=== PATIENT | male | born 1975 | race Caucasian/White ===

== ENCOUNTER 2017-09-26 01:40 | Emergency (ER) | payer SELFPAY ==
[2017-09-26 01:56] VITALS: BP 122/83; BMI 24.3
--- NOTE | 2017-09-26 02:11 | DR.GENAD ---
HPI - PCP Primary Care Physician: CLAUDIA - HPI Comment HPI Comment: HISTORY BELOW. - Complaint/Symptoms Chief Complaint Doctors Comments: PATIENT A PUSTULE BELOW RT KNEE WITH REDNESS EXTENDING TO LEG AND STREAKING TO LOWER THIGH AREA WITHIN 2 DAYS. INCREASING PAIN. NO FEVER. POP PUSTULE BUT CURRENTLY, NO DRAINAGE. Chief Complaint:: RIGHT LEG INNER THIGH HURTING AND "KNOTTED UP" FOR TWO DAYS. Self Treatment fo Chief Complaint: MOTRIN - Nurses notes reviewed Nurses Notes Review: Yes - Source History Provided: Patient - Mode of Arrival Mode of Arrival: Wheelchair - Timing Onset of Chief Complaint: 09/24/17 Came on: Suddenly - Duration Duration: Constant Duration: Days - Severity Severity: Moderate PMH - PMH Past Medical History: Yes Past Medical History: Depression, Seizures Past Surgical History: Yes Past Surgical History Comment: EAR DRUM - Family History History of Family Medical Conditions: Yes Family Medical History: [place] - Social History Does patient currently use any type of tobacco product: Yes Have you used tobacco products in the last 12 months: Yes Type of Tobacco Use: Cigarettes Does any household member use tobacco: No Alcohol Use: None Do you use any recreational Drugs:: No Lives With: Spouse Lives Where: Home - infectious screening In the last 2 months have you had wt loss of >10#?: NO Have you had fever, night sweats or hemotysis?: No Have you traveled outside the country in the last 6 months?: No Isolation: Standard ROS - Review of Systems Constitutional: No Symptoms Reported Eyes: No Symptoms Reported ENTM: No Symptoms Reported Respiratoy: No Symptoms Reported Cardiovascular: No Symptoms Reported Gastrointestinal/Abdominal: No Symptoms Reported Genitourinary: No Symptoms Reported Neurological: No Symptoms Reported Musculoskeletal: Right, Leg, Knee Integumentary: No Symptoms Reported Hematologic/Lymphatic: No Symptoms Reported Endocrine: No Symptoms Reported All Other Systems: Reviewed and Negative PE - Vital Signs Vitals: Temperature 99.3 F Pulse Rate 84 Respiratory Rate 20 Blood Pressure 122/83 O2 Sat by Pulse Oximetry 97 - General Limitations: No Limitations General Appearance: Alert - Head Head Exam: Normal Inspection - Eyes Eye exam: Normal Appearance - ENT ENT Exam: Normal External Ear Exam External Ear Exam: Normal External Inspection TM/Canal Exam: Bilateral Normal Nose Exam: Normal Nose Exam Mouth Exam: Normal Inspection Throat Exam: Normal Inspection - Neck Neck Exam: Trachea Midline - Chest Chest Inspection: Symmetric Chest Wall Rise - Respiratory Respiratory Exam: Normal Lung Sounds Bilat Respiratory Exam: Bilateral Clear to Auscultation - Cardiovascular Cardiovascular Exam: Regular Rate, Normal Rhythm, Normal Heart Sounds - Abdominal Exam Abdominal Exam: Normal Bowel Sounds, Soft. negative: Tenderness - Extremities Extremities Exam: Tenderness (REDNESS WITH STRAKING RLE. REDNESS RT LEG BELOW KNEE WITH STRAKING TO LOWER THIGH AREA. NO PALPABLE CORDS.) - Back Back Exam: Normal Inspection - Neurologic Neurological Exam: Alert, Oriented X3 - Psychiatric Psychiatric Exam: Normal Affect, Normal Mood - Skin Skin Exam: Rash, Erythema MDM - Additional Information Additional Information Obtained From: Family - Differential Diagnosis Differential Diagnosis: CELLULITIS RLE. Course - Treatment Treatment: SEE ORDERS. IV CLINDAMYCIN IN ED WITH IV TORADOL. - Education/Counseling Education/Counseling: Patient, Family, Education Educated On: Diagnosis, Needs for Follow Up ROR - Labs Reviewed Laboratory Results Reviewed?: Yes Result Diagrams: 09/26/17 02:33 09/26/17 02:33 Laboratory: WBC 9.5 X10^3/uL (3.6-10.0) 09/26/17 02:33 RBC 4.44 X10^6/uL (4.7-6.0) L 09/26/17 02:33 Hgb 14.0 g/dL (13.5-18.0) 09/26/17 02:33 Hct 39.3 % (42.0-54.0) L 09/26/17 02:33 MCV 88.5 fL (80.0-100.0) 09/26/17 02:33 MCH 31.6 pg (27.0-34.0) 09/26/17 02:33 MCHC 35.7 g/dL (33.0-35.0) H 09/26/17 02:33 RDW 13.0 % (11.6-16.5) 09/26/17 02:33 Plt Count 235 X10^3/uL (150.0-450.0) 09/26/17 02:33 MPV 8.3 fL (7.4-11.0) 09/26/17 02:33 Neut % (Auto) 68.7 % (42.0-75.0) 09/26/17 02:33 Lymph % (Auto) 19.7 % (21.0-51.0) L 09/26/17 02:33 [place] % (Auto) 7.7 % (0.0-13.0) 09/26/17 02:33 Eos % (Auto) 3.1 % (0.9-2.9) H 09/26/17 02:33 Baso % (Auto) 0.8 % (0.2-1.0) 09/26/17 02:33 Neut # (Auto) 6.5 x10^3/uL (2.2-4.8) H 09/26/17 02:33 Lymph # (Auto) 1.9 X10^3/uL (1.3-2.9) 09/26/17 02:33 [place]ro # (Auto) 0.7 x10^3/uL (0.3-0.8) 09/26/17 02:33 Eos # (Auto) 0.3 x10^3/uL (0.0-0.2) H 09/26/17 02:33 Baso # (Auto) 0.1 X10^3/uL (0.0-0.1) 09/26/17 02:33 Absolute Nucleated RBC 0.0 /100WBC 09/26/17 02:33 Sodium 137 mmol/L (136-145) 09/26/17 02:33 Corrected Sodium TNP 09/26/17 02:33 Potassium 3.3 mmol/L (3.5-5.1) L 09/26/17 02:33 Chloride 103 mmol/L (98-107) 09/26/17 02:33 Carbon Dioxide 28.7 mmol/L (21-32) 09/26/17 02:33 BUN 14 mg/dL (7-18) 09/26/17 02:33 Creatinine 0.90 mg/dL (0.70-1.30) 09/26/17 02:33 Est GFR (MDRD) Af Amer > 60 (>60) 09/26/17 02:33 Est GFR (MDRD) Non-Af > 60 (>60) 09/26/17 02:33 Glucose 107 mg/dL (65-99) H 09/26/17 02:33 Calcium 7.9 mg/dL (8.5-10.1) L 09/26/17 02:33 Corrected Calcium TNP 09/26/17 02:33 Total Bilirubin 0.50 mg/dL (0.2-1.0) 09/26/17 02:33 AST 14 Units/L (15-37) L 09/26/17 02:33 ALT 23 Units/L (12-78) 09/26/17 02:33 Alkaline Phosphatase 96 Units/L (46-116) 09/26/17 02:33 Total Protein 7.1 g/dL (6.4-8.2) 09/26/17 02:33 Albumin 3.6 g/dL (3.4-5.0) 09/26/17 02:33 Globulin 3.5 g/dL (2.5-4.5) 09/26/17 02:33 Albumin/Globulin Ratio 1.0 Ratio (1.1-2.1) L 09/26/17 02:33 - Diagnosis Discharge Problem: Hypokalemia Cellulitis Qualifiers: Site of cellulitis: extremity Site of cellulitis of extremity: lower extremity Laterality: right Qualified Code(s): L03.115 - Cellulitis of right lower limb - Discharge Plan Condition: Stable Prescriptions: Ibuprofen [MOTRIN TAB 800 MG *] 800 mg PO Q8H PRN #30 tab PRN Reason: Pain/Inflammation Sulfamethoxazole-Trimethoprim [BACTRIM DS TAB 800/160 MG *] 1 tab PO Q8H #30 tab - Follow ups/Referrals Follow ups/Referrals: [facility],None [Primary Care Provider] - 3 days GUS GALLEGO [STAFF PHYSICIAN] - 09/27/17 - Instructions Instructions: Cellulitis, Adult, [id number] Additional Instructions: RETURN TO ED IF WORSE.
[2017-09-26] MEDS ORDERED: TORADOL 30 MG VIAL IVP ONE (02:18)
[2017-09-26] MEDS ORDERED: CLEOCIN VIAL 600 MG 600 MG in D5W 50 ML IV 50 ML IV ONE (02:18)
[2017-09-26] MEDS ORDERED: TORADOL 30 MG VIAL ONE (02:21)
[2017-09-26] MEDS ORDERED: CLEOCIN VIAL 600 MG ONE (02:22)
[2017-09-26] MEDS ORDERED: NS 100 ML IV + SPIKE MINIBAG* 100 ML IV ONE (02:23)
[2017-09-26 02:49] LABS: BASOPHILS # (AUTO) 0.1 X10^3/uL (0.0-0.1); BASOPHILS % (AUTO) 0.8 % (0.2-1.0); EOSINOPHILS # (AUTO) 0.3 x10^3/uL (0.0-0.2); EOSINOPHILS % (AUTO) 3.1 % (0.9-2.9); HEMATOCRIT 39.3 % (42.0-54.0); LYMPHOCYTES # (AUTO) 1.9 X10^3/uL (1.3-2.9); LYMPHOCYTES % (AUTO) 19.7 % (21.0-51.0); MEAN CORPUSCULAR HEMOGLOBIN 31.6 pg (27.0-34.0); MEAN CORPUSCULAR HGB CONC 35.7 g/dL (33.0-35.0); MEAN CORPUSCULAR VOLUME 88.5 fL (80.0-100.0); MEAN PLATELET VOLUME 8.3 fL (7.4-11.0); MONOCYTES # (AUTO) 0.7 x10^3/uL (0.3-0.8); MONOCYTES % (AUTO) 7.7 % (0.0-13.0); NEUTROPHILS # (AUTO) 6.5 x10^3/uL (2.2-4.8); NEUTROPHILS % (AUTO) 68.7 % (42.0-75.0); PLATELET COUNT 235 X10^3/uL (150.0-450.0); RED BLOOD COUNT 4.44 X10^6/uL (4.7-6.0); WHITE BLOOD COUNT 9.5 X10^3/uL (3.6-10.0)
[2017-09-26 02:58] LABS: ALANINE AMINOTRANSFERASE 23 Units/L (12-78); ALBUMIN 3.6 g/dL (3.4-5.0); ALKALINE PHOSPHATASE 96 Units/L (46-116); ASPARTATE AMINO TRANSFERASE 14 Units/L (15-37); BLOOD UREA NITROGEN 14 mg/dL (7-18); CALCIUM 7.9 mg/dL (8.5-10.1); CARBON DIOXIDE 28.7 mmol/L (21-32); CHLORIDE 103 mmol/L (98-107); SODIUM 137 mmol/L (136-145); TOTAL PROTEIN 7.1 g/dL (6.4-8.2); eGFR BLACK RACES > 60 (>60); eGFR NON BLACK RACES > 60 (>60)
[2017-09-26] MEDS ORDERED: K-LYTE EFFERVESCENT PO ONE (03:13)
[2017-09-26] MEDS ORDERED: BACTRIM DS TAB PO ONE ×2 (03:15→03:17)
[2017-09-26] MEDS ORDERED: K-LYTE EFFERVESCENT ONE (03:17)
== END 2017-09-26 03:27 | disposition home or self-care (01) ==
LOC: ER 01:40
DX: L03.115 Cellulitis of right lower limb (principal); E87.6 Hypokalemia
CPT/HCPCS: 36415; 80053; 85025; 87040; 96365; 96374; 96375; 99283; A4222; J1885; S0077